=== PATIENT | female | born 1930 | race Two or more races ===

== ENCOUNTER 2016-11-04 17:09 | Inpatient (IN) | payer OTHER, MEDICARE ==
[~2016-11-04] VITALS: Ht 142.2 cm; Wt 38.5 kg
[~2016-11-04 17:09] MED LIST: ALENDRONATE; ASPIR 8181 MG PO
--- NOTE | 2016-11-04 17:39 | NUR ---
PT IS A 86 YEAR OLD FEMALE, PRESENTS TO ED WITH C/O RUQ ABDOMINAL PAIN X1 WEEK THAT HAS BEEN CONSTANT AND RADAITES AROUND TO BACK. PT DENIES ANY URINARY COMPLICATIONS. PT DENIES ANY N/V/D/C. PT BREATHING IS EVEN AND UNLABORED, NO S/S OF RESPRAITORY DISTRESS. SPEECH IS CLEAR AND APPROPRIATE. PT A/O X4. MSE PERFORMED BY .
[2016-11-04 17:57] LABS: CARBON DIOXIDE 27.8 mmol/L (21-32); CHLORIDE SERUM 95 mmol/L (98-107); CREATININE SERUM 0.8 mg/dL (0.6-1.0); GLUCOSE SERUM 83 mg/dL (74-106); POTASSIUM SERUM 4.5 mmol/L (3.5-5.1); SODIUM SERUM 128 mmol/L (136-145)
[2016-11-04 18:01] LABS: ALKALINE PHOSPHATASE 48 U/L (46-116); ALT/SGPT 14 U/L (14-59); AST/SGOT 19 U/L (15-37); BILIRUBIN TOTAL 0.3 mg/dL (0.20-1.00); TOTAL PROTEIN, SERUM 7.3 g/dL (6.4-8.2)
[2016-11-04 18:08] LABS: BASOPHIL % 0.3 % (0-2); PLATELET COUNT 149 x10^3mcL (130-400); RED CELL DISTRIBUTION WIDTH 13.6 % (11.5-14.5)
[2016-11-04 18:12] LABS: ALBUMIN 3.3 g/dL (3.4-5.0)
--- NOTE | 2016-11-04 19:07 | NUR ---
REPORT GIVEN TO HECTOR SABA, SHE WILL ASSYUME CARE PRIMARY RN.
--- NOTE | 2016-11-04 19:29 | NUR ---
PT IN BED AWAKE ALERT, RESP E/U. OBTAINED MRSA SWAB.
[2016-11-04] MEDS ORDERED: SIMVASTATIN20 M1 PO (19:31)
[2016-11-04] MEDS ORDERED: DSS100 MG PO (19:31)
[2016-11-04] MEDS ORDERED: TRAMADOL HCL50 MG PO (19:31)
[2016-11-04] MEDS ORDERED: CARVEDILOL3.125 M1 PO (19:31)
--- NOTE | 2016-11-04 19:54 | NUR ---
REPORT GIVEN TO LOVLEE TO ASSUME CARE
--- NOTE | 2016-11-04 20:04 | NUR ---
PT EN ROUTE TO TELE
--- NOTE | 2016-11-04 20:05 | NUR ---
RECEIVED PT FROM ER VIA [facility] ACCOMPANIED WITH NURSE, EMT AND PT'S GRANDDAUGHTER, PT SEEN, ALERT AND ORIENTED, DENIES HEADACHE OR DIZZINESS, GUJARATI SPEAKING ONLY, BREATHING EVEN AND UNLABORED, NO SOB, LUNG SOUNDS CLEAR, ON ROOM AIR WITH NO RESP DISTRESS NOTED, ON TELE#3 NSR, C/O OF CHEST PAIN EARLIER IN ED, PULSES PALPABLE, NO EDEMA NOTED, AMBULATORY WITH STEADY GAIT, ABD SOFT AND FLAT WITH ACTIVE BS, NO BM AT THIS TIME, C/O RT SIDE FLANK PAIN, DENIES ANY PROBLEM WITH VOIDING, POOR APPETITE, NO DISTRESS NOTED, WILL KEEP TO MONITOR.
[2016-11-04 20:34] VITALS: BP 107/68
[2016-11-04 20:50] LABS: MAGNESIUM 2.1 mg/dL (1.8-2.4); PHOSPHOROUS 4.7 mg/dL (2.5-4.9)
[2016-11-04 20:58] LABS: T3 TOTAL 0.81 ng/mL
[2016-11-04 21:00] LABS: FREE T4 1.06 ng/dL (0.76-1.46); FREE THYROXINE INDEX 3.3 ug/dL (1.4-4.5); T4(THYROXINE) 8.8 ug/dL (4.7-13.3)
--- NOTE | 2016-11-04 21:49 | NUR ---
PT STATES FEELING BETTER AFTER BEING GIVEN PRN NORCO 7.5 MG PO FOR C/O PAIN 8-9/10 TO RIGHT SIDE OF BACK RADIATING TO RIGHT CHEST. DENIES ANY SOB AT THIS TIME. NO S/S OF RESPIRATORY DISTRESS NOTED. 99% RA. LUNGS CLEAR BILATERALLY. IV NS INFUSING WELL TO LEFT AC. NO S/S OF INFECTION NOTED. GRANDDAUGHTER AT BEDSIDE. CALL LIGHT WITHIN REACH. WILL CONTINUE TO MONITOR. DR. RODRIGUEZ IN TO SEE PT AT THIS TIME.
--- NOTE | 2016-11-05 00:20 | NUR ---
PT ASSISTED TO BR, AMBULATORY WITH STEADY GAIT. ASSISTED BACK TO BED. BREATHING EQUAL AND UNLABORED. NO S/S OF RESPIRATORY DISTRESS NOTED ON ROOM AIR. IV PATENT AND INFUSING WELL. SCDS IN PLACE. SIDE RAILS UP. BED ALARM ON. NO S/S OF DISTRESS NOTED AT THIS TIME. CALL LIGHT WITHIN REACH. WILL CONTINUE TO MONITOR.
--- NOTE | 2016-11-05 03:15 | NUR ---
LAB RESULT FOR PTT 47.3; NO CHANGE AT THIS TIME. SECOND THERAPEUTIC PTT. IV HEPARIN INFUSING 700 ML/HR TO RIGHT AC. DR. NICOLAS NOTIFIED AND AWARE.
[2016-11-05 05:51] VITALS: BP 110/50
[2016-11-05 06:10] LABS: BASOPHIL % 0.3 % (0-2); RED CELL DISTRIBUTION WIDTH 13.3 % (11.5-14.5)
[2016-11-05 06:17] LABS: PLATELET COUNT 127 x10^3mcL (130-400)
--- NOTE | 2016-11-05 06:25 | NUR ---
PT SLEPT WELL THROUGHOUT THE NIGHT. BREATHING EQUAL AND UNLABORED ON ROOM AIR. NO S/S OF RESPIRATORY DISTRESS NOTED. IV PATENT AND INFUSING WELL. PT C/O 09/30 RIGHT FLANK PAIN. NOTED GRIMACING WITH MOVEMENT. PRN TRAMADOL 50 MG PO GIVEN. CALL LIGHT WITHIN REACH. WILL CONTINUE TO MONITOR.
[2016-11-05 06:30] LABS: CALCIUM 8.5 mg/dL (8.5-10.1); CHLORIDE SERUM 96 mmol/L (98-107); CREATININE SERUM 0.8 mg/dL (0.6-1.0); GLUCOSE SERUM 110 mg/dL (74-106); POTASSIUM SERUM 4.3 mmol/L (3.5-5.1); SODIUM SERUM 128 mmol/L (136-145)
--- NOTE | 2016-11-05 07:25 | NUR ---
RECEIVED THE PATIENT AWAKE AND ORIENTED TO PERSON, PLACE AND . PATIENT DENIED NAUSEA OR VOMITING AT THIS TIME. PATIENT STATED HAVING EPISODES OF ABD. AND BACK PAIN. THE PAIN WAS 4/10 AT THIS TIME AND TOLERABLE. CONTINUE TO MONITOR AND MEDICATE FOR PAIN PRN. IVF NS VIA H/L TO LAC. TELE # 3 READS SINUS RHYTHMS. CALL LIGHT WITHIN REACH. SIDE RAILS UP X3. BED WAS AT LOWEST POSITION AND ALARM WAS ON.
--- NOTE | 2016-11-05 08:40 | NUR ---
DR. LITTLE AND THE TEAM WERE MAKING ROUND TO SEE THE PATIENT. THE CARE PLAN WAS EXPLAINED TO THE PATIENT AND HER SON AT BEDSIDE. THE SON VERBALIZED UNDERSTANDING AND TRANSLATED THE INFORMATION TO THE [facility].
[2016-11-05 09:23] VITALS: BP 156/67
--- NOTE | 2016-11-05 10:00 | NUR ---
ECHO DECLINED JUST DONE AT [facility] EF 64% /GRANDSON.
[2016-11-05 10:09] LABS: UA SPECIFIC GRAVITY <=1.005 (1.005-1.035); microscopic required? YES; urine erythrocyte TRACE (NEGATIVE)
[2016-11-05 14:14] VITALS: BP 138/55
[2016-11-05 14:17] VITALS: BP 120/74
--- NOTE | 2016-11-05 17:11 | NUR ---
Initial Nutrition Assessment-Ashley Pérez 223T-A Dx: Chest pain PMHx: HTN,HLD andosteoporosis PSHx:None Labs: (11/05) Na:128L, B, H/H:9.7/29L, Troponin:0.062, WNL (11/04) Alb: 3.3L, HDL:71H, Amylase:124H, A1c:6.2, Meds: Colace, Humulin, NS IV, Theragran, Zofran Diet:Clear liquid PO Intake: (10/05) B:50%, L:100% Ht: 56in, 4'8" Wt:85#, 38.55kg BMI: 19.1kg/m2 (normal weight) IBW: 92#, %IBW:92 % UBW:85# per pt's granddaughter Age:86 y/o female Food Allergies:NKFA Skin:intact Simon:17 Edema:None GI: active bowel sounds. Last BM:11/04 Nursing Trigger:appears underweight/malnourished, poor PO intake>3days and unable to ingest for age. Pt admitted with chest pain and disorder of GI possibly cholecystitis. Pt is pending CT of abd and pelvis, per H&P. During visit observed pt laying in bed with granddaughter at bedside. Pt appears underweight but not malnourished. Per pt's granddaughtrer. Pt with elevated amylase and with possible pancreatitis. Pt with fair appetite and is tolerating clear liquid diet and will possibly be advanced. Problem with: N: Yes V: emesis x1 today D: No C:No Problems with: Chewing: pt with dentures but no shewing issues Swallowing:No Current appetite: Fair Recent wt change:no %wt change:0& Vitamin/Supplement use:No Special diet at home:Vegetarian (no eggs and no onions and garlic) Physical activity:No Education: Provided verbal diet education on low fat diet for possible pancreatitis. Pt's granddaughter familiar with diet due to being a RN. Estimated Nutritional Needs Based on actual body weight 39kg Energy: 975-1170kcal/d (25-30kcal/kg for geriatric maintenance) Protein: 39g/d (1g/kg for geriatric maintenance) Fluid: 975-1170ml/d (1 ml/kcal) or per doctor Nutrition Diagnosis 1. Altered nutrition labs related to possible pancreatitis as evidenced by elevated amylase level: 124H Intervention 1.Recommend advance diet as tolerated to low fat diet due to pt with possible pancreatitis. 2. Altered GI function related to possible pancreatitis as evidenced by pt with nausea and emesis x1 today. Monitor/Evaluate Goal:diet advancement, PO intake at least 75% of estimated needs Monitor: diet advancement, PO intake, Labs, GI function F/U in 3-5 days as moderate risk:11/08-
--- NOTE | 2016-11-05 17:12 | NUR ---
1.Recommend advance diet as tolerated to low fat diet due to pt with possible pancreatitis.
--- NOTE | 2016-11-05 18:53 | NUR ---
THE PATIENT C/O EPISODES OF NAUSEA AND VOMITTED 100 ML OF EMESIS. ZOFRAN 4MG IVP WAS MEDICATED TO THE PATIENT Q4HR X3 DURING THE SHIFT. THE PATIENT WAS RESTING IN BED AND STATED FEELING BETTER AND WAS ABLE TO HAVE 50 % OF CLEAR LIQUID FOR DINNER.
[2016-11-05 18:55] VITALS: BP 163/63
--- NOTE | 2016-11-05 19:20 | NUR ---
RECEIVED PT LAYING IN BED WITH GRAND DAUGHTER AT BEDSIDE. PT DENIES CHEST PAIN AT THIS TIME. PT IS A/O X4. SHE IS CALM AND PLEASANT. PT ON TELE MONITOR #3, NSR RATE OF 65. BILAT PERIPHERAL PULSES ARE PALPABLE. NO EDEMA NOTED. CAP REFILL <3 SECONDS. SCD ARE IN PLACE. PT IS BREATHING ON RA, LUNG SOUNDS CLEAR TO AUSCULTATION. PT DENIES SOB AT THIS TIME. PT DOES NOT APPEAR TO BE IN RESP DISTRESS. PT ABD IS SOFT AND FLAT WITH ACTIVE BOWEL SOUNDS. PT C/O MILD ABDOMINAL DISCOMFORT. DENIES NEED FOR PAIN MEDICATION. LAST BM WAS YESTERDAY. PT C/O MILD NAUSEA. NO VOMITING. PT DENIES NEED FOR NAUSEA MEDICATION THUS FAR. PT IS ABLE TO FREELY VOID URINE. PT HAS BRP AND IS AMBULATORY TO THE BATHROOM WITH ASSITANCE. SKIN IS DRY AND INTACT. NO ECCHYMOSIS OR REDNESS NOTED. IV FLUIDS INFUSING INTO THE LAC PER DOCTOR'S ORDERS. IV SITE IS DRY, PATENT, AND INTACT. NO SIGNS OF INFILTRATION. BED IN LOWEST POSITION. ROOM IS FREE AND CLEAR OF ALL SAFETY HAZARDS. CALL LIGHT WITHIN REACH. WILL CONTINUE TO MONITOR.
[2016-11-05 20:28] VITALS: BP 116/56
--- NOTE | 2016-11-05 21:00 | NUR ---
PT C/O ABDOMINAL PAIN AT NAUSEA. PAIN MED GIVEN AND ZOFRAN GIVEN. WILL CONTINUE TO MONITOR.
--- NOTE | 2016-11-06 00:26 | NUR ---
SPOKE WITH DR. NICOLAS. NOTIFIED HER ABOUT PT'S LOW SODIUM OF 128. NO NEW ORDERS GIVEN. WILL CONTINUE TO MONITOR
--- NOTE | 2016-11-06 00:50 | NUR ---
MADE ROUNDS. PT LAYING BED ASLEEP. DOES NOT APPEAR TO BE IN DISTRESS AT THIS TIME. CALL LIGHT WITHIN REACH. WILL CONTINUE TO MONITOR
--- NOTE | 2016-11-06 05:08 | NUR ---
PT WAS CALM AND PLEASANT DURING THE NIGHT. PT WAS ABLE TO GET A GOOD NIGHT'S REST. NO SIGNIFICANT OCCURENCES TO REPORT FROM THE NIGHT. PT COMPLIED WITH NURSING CARE THROUGH OUT THE SHIFT. PT DENIES CHEST PAIN. PT DENIES SOB AT THIS TIME. PT HAD NO VOMITING. IF FLUIDS REMAIN INFUSING INTO THE LAC PER DOCTOR'S ORDERS. IV SITE IS DRY, PATENT, AND INTACT. NO SIGN OF INFILTRATION. BED IN LOWEST POSITION. ROOM IS FREE AND CLEAR OF ANY SAFETY HAZARDS. CALL LIGHT WITHIN REACH. WILL ENDORSE CARE TO DAY NURSE.
[2016-11-06 05:49] VITALS: BP 134/58
[2016-11-06 06:16] LABS: BASOPHIL % 0.3 % (0-2); PLATELET COUNT 142 x10^3mcL (130-400); RED CELL DISTRIBUTION WIDTH 13.1 % (11.5-14.5)
[2016-11-06 06:32] LABS: AMYLASE 92 U/L (25-115); LIPASE 99 IU/L (73-393)
[2016-11-06 06:58] LABS: CALCIUM 8.5 mg/dL (8.5-10.1); CARBON DIOXIDE 25.2 mmol/L (21-32); CHLORIDE SERUM 101 mmol/L (98-107); CREATININE SERUM 0.7 mg/dL (0.6-1.0); GLUCOSE SERUM 89 mg/dL (74-106); MAGNESIUM 1.8 mg/dL (1.8-2.4); PHOSPHOROUS 4.3 mg/dL (2.5-4.9); POTASSIUM SERUM 4.2 mmol/L (3.5-5.1); SODIUM SERUM 133 mmol/L (136-145)
--- NOTE | 2016-11-06 07:25 | NUR ---
RECEIVED PT. IN BED AWAKE, ALERT. NO SOB, NO N/V NOTED. DENIES ANY PAIN AT THIS TIME. NS RUNNING AT 100 CC/HR. VIA IV H/L AT L AC. SCD TO BLE MAINTAINED. BED IN LOW POS., CALL LIGHT WITHIN REACH. SIDE RAILS UP X3.
[2016-11-06 09:54] VITALS: BP 123/63
[2016-11-06 11:21] VITALS: Ht 142.2 cm; Wt 38.5 kg
[2016-11-06 13:33] VITALS: BP 120/60
--- NOTE | 2016-11-06 15:00 | NUR ---
IV H/L RESTARTED AT R AC WITH GAUGE #22 DUE TO LEAKING OF CURRENT IV SITE (L AC).
--- NOTE | 2016-11-06 16:16 | NUR ---
REMAINS IN STABLE CONDITION AT THIS TIME. NO ACUTE DISTRESS NOTED.
[2016-11-06 17:52] VITALS: BP 158/67
--- NOTE | 2016-11-06 19:43 | NUR ---
RECEIVED PATIENT IN BED AWAKE,ALERT AND ORIENTED WITH NO SIGN OF DISTRESS NOTED. BREATHING EASY AND NON LABOR SATTING AT 98% RA. FAMILY MEMBERS AY BEDSIDE. TELE# 3,NSR ON MONITOR. SCD TO BLE IN PLACE. HAD BM TODAY SOFT IN LARGE AMOUNT PER PATIENT DAUGHTER. IV TO RAC INTACT AND INFUSING WELL. WILL CONTINUE TO MONITOR.
[2016-11-06 21:09] VITALS: BP 118/61
--- NOTE | 2016-11-07 00:56 | NUR ---
SLEEPING THIS TIME BREATHING EASY AND NONLABOR. WILL CONTINUE TO MONITOR.
--- NOTE | 2016-11-07 05:13 | NUR ---
SLEPT AT LONG INTERVALS DENIES PAIN AND DISOCMORT THE ENTIRE SHIFT. ALL NEEDS ATTENDED.
[2016-11-07 06:41] LABS: BASOPHIL % 0.3 % (0-2); PLATELET COUNT 144 x10^3mcL (130-400); RED CELL DISTRIBUTION WIDTH 13.4 % (11.5-14.5)
[2016-11-07 07:01] VITALS: BP 149/55
[2016-11-07 07:12] LABS: CALCIUM 7.8 mg/dL (8.5-10.1); CHLORIDE SERUM 104 mmol/L (98-107); CREATININE SERUM 0.6 mg/dL (0.6-1.0); GLUCOSE SERUM 88 mg/dL (74-106); MAGNESIUM 1.8 mg/dL (1.8-2.4); POTASSIUM SERUM 3.6 mmol/L (3.5-5.1); SODIUM SERUM 136 mmol/L (136-145)
--- NOTE | 2016-11-07 07:25 | NUR ---
RECEIVED THE PATIENT AWAKE AND ORIENTED TO PERSON, PLACE AND . PATIENT DENIED PAIN OR NAUSEA/VOMITING AT THIS TIME. IVF NS VIA H/L TO RAC. TELE # 3 READS SINUS RHYTHMS WITH DEPRESSED T WAVES. CALL LIGHT WITHIN REACH. SIDE RAILS UP X3. BED WAS AT LOWEST POSITION AND ALARM WAS ON.
--- NOTE | 2016-11-07 08:07 | NUR ---
DR. HUTSON AND THE TEAM WERE MAKING ROUND TO SEE THE PATIENT.
[2016-11-07 10:10] VITALS: BP 143/58
--- NOTE | 2016-11-07 12:54 | NUR ---
THE PATIENT DENIED ANY ABD PAIN OR NAUSEA/VOMITING AFTER HAVING FULL LIQUID DIET FOR LUNCH.
[2016-11-07 17:21] VITALS: BP 137/71
--- NOTE | 2016-11-07 19:07 | NUR ---
THE PATIENT WAS TOLERATED ABOUT 10% OF CCHO DIET FOR DINNER; HOWEVER, SHE DENIED ANY NAUSEA/VOMITING OR STOMACH PAIN AFTER HAVING THE DINNER. THE PATIENT TOOK A WALK IN THE HALLWAY WITH HER GRANDSON COUPLE OF TIMES DURING THE SHIFT WITH SLOW GAIT AND HOLDING IV POLE.
--- NOTE | 2016-11-07 19:29 | NUR ---
RECEIVED PATIENT IN BED AWAKE, ALERT AND ORIENTED WITH NO SIGN OF ACUTE DISTRESS. BREATHING EASY AND NONLABOR SATTING AT 97% RA. IV TO RAC INTACT AND INFUSING WELL. WILL CONTINUE TO MONITOR. CALL LIGHT WITHIN REACH. BED ALARM ON.
--- NOTE | 2016-11-08 00:09 | NUR ---
SLEEPING THIS TIME BREATHING EASY AND NONLABOR. WILL CONTINUE TO MONITOR.
--- NOTE | 2016-11-08 01:50 | NUR ---
AWAKE C/O BACKPAIN, MEDICATED WITH NORCO 1 TAB PO PRESCRIBED. WILL CONTINUE TO MONITOR.
[2016-11-08 04:58] VITALS: BP 122/54
--- NOTE | 2016-11-08 05:14 | NUR ---
SLEPT FAIRLY, C/O BACKPAIN X1 THE ENTIRE SHIFT AND MEDICATED PRESCRIBED. CHECKED AT INTERVALS FOR NEEDS AND SAFETY.
[2016-11-08 06:25] LABS: CALCIUM 7.8 mg/dL (8.5-10.1); CARBON DIOXIDE 27.5 mmol/L (21-32); CHLORIDE SERUM 103 mmol/L (98-107); CREATININE SERUM 0.6 mg/dL (0.6-1.0); GLUCOSE SERUM 88 mg/dL (74-106); PHOSPHOROUS 3.3 mg/dL (2.5-4.9); POTASSIUM SERUM 3.4 mmol/L (3.5-5.1); SODIUM SERUM 133 mmol/L (136-145)
[2016-11-08 06:30] LABS: BASOPHIL % 0.3 % (0-2); PLATELET COUNT 135 x10^3mcL (130-400); RED CELL DISTRIBUTION WIDTH 13.4 % (11.5-14.5)
--- NOTE | 2016-11-08 07:25 | NUR ---
RECEIVED PATIENT AWAKE/ALERT IN BED NO DSITRESS NOTED; DENIES PAIN. ASSIST PATIENT TO BATHROOM AND BACK TO BED. C/O NAUSEA. WILL MEDICATE FOR NAUSEA. CALL LIGHT WITHIN REACH.
[2016-11-08 08:47] VITALS: BP 158/60
--- NOTE | 2016-11-08 09:16 | NUR ---
[place] IV PATIENT OFF FLOOR VIA WHEEL CHAIR FOR CT.
--- NOTE | 2016-11-08 09:45 | NUR ---
PATIENT IN BED TECH PERFORM RENAL US AT THIS TIME, NO COMPLAINT. RENAL US COMPLETED. REPOSITION UP IN BED; ALL DUE MEDS GIVEN. NEEDS ATTENDED. CALL LIGHT WITHIN REACH.
--- NOTE | 2016-11-08 12:27 | NUR ---
DR. MIKE AMEZQUITA FOR PATIENT'S DTR REQUEST; REPOSITION PATIENT UP IN BED FOR LUNCH. DUE MEDS GIVEN. DTR ASSIST PATIENT WITH HER MEAL. BS 81 NO COVERAGE NEEDED. NEEDS ANTICIPATED.
[2016-11-08 13:48] VITALS: BP 141/41
--- NOTE | 2016-11-08 15:53 | NUR ---
PATIENT UP WALKING PT IN [place] NO COMPLAINT.
--- NOTE | 2016-11-08 16:56 | NUR ---
PATIENT RESTING IN BED REPOSITION UP IN BED, NO COMPLAINT. DUE MEDS GIVEN. BS 73 NO COVERAGE NEEDED; JUICE GIVEN. CONT TO MONITOR.
--- NOTE | 2016-11-08 17:39 | NUR ---
REPOSITION PATIENT UP FOR DINNER PATIENT REFUSED TO EAT DON'T LIKE THE FOODS. JELLO AND JUICE GIVEN. CONT TO MONITOR.
[2016-11-08 18:43] VITALS: BP 141/88
--- NOTE | 2016-11-08 19:10 | NUR ---
PATIENT RECEIVED AWAKE, ALERT, AND ORIENTED X 4. FAMILY AT BEDSIDE. NO DISTRESS NOTED. PATIENT DENIES CHEST PAIN AT THIS TIME. PATIENT C/O 5/10 BACK PAIN, WILL MEDICATE PER DOCTOR'S PRN ORDER. IV SITE TO LEFT FOREARM, PATENT AND INTACT. IV FLUID INFUSING PER DOCTOR'S ORDER. BED IN LOWEST POSITION. CALL LIGHT WITHIN REACH. WILL CONTINUE TO MONITOR.
[2016-11-08 21:16] VITALS: BP 160/61
--- NOTE | 2016-11-09 05:17 | NUR ---
PATIENT RESTED THROUGHOUT THE NIGHT. NO DISTRESS NOTED. NO C/O CHEST PAIN. SAFETY AND COMFORT MEASURES MAINTAINED. BED IN LOWEST POSITION. CALL LIGHT WITHIN REACH. WILL CONTINUE TO MONITOR AND ENDORSE TO NEXT SHIFT NURSE.
[2016-11-09 05:58] VITALS: BP 124/50
[2016-11-09 06:07] LABS: BASOPHIL % 0.4 % (0-2); PLATELET COUNT 157 x10^3mcL (130-400); RED CELL DISTRIBUTION WIDTH 13.2 % (11.5-14.5)
[2016-11-09 06:12] LABS: CALCIUM 8.4 mg/dL (8.5-10.1); CARBON DIOXIDE 26.8 mmol/L (21-32); CHLORIDE SERUM 103 mmol/L (98-107); CREATININE SERUM 0.7 mg/dL (0.6-1.0); GLUCOSE SERUM 79 mg/dL (74-106); MAGNESIUM 2.3 mg/dL (1.8-2.4); PHOSPHOROUS 3.4 mg/dL (2.5-4.9); POTASSIUM SERUM 4.8 mmol/L (3.5-5.1); SODIUM SERUM 134 mmol/L (136-145)
[2016-11-09 07:50] VITALS: BP 150/59
--- NOTE | 2016-11-09 07:55 | NUR ---
A/O X4. CLEAR SPEECH. SPEAKS SOME STATELESS. RADIAL AND PEDAL PULSES PALPABLE. NO EDEMA OR SWELLING NOTED. <3 SECS CAP REFILL. SCDS IN PLACED. ON RA SAT 96%. BREATHING EVEN AND UNLBARED. NO NVD. VOIDING ADEQUATELY. HAS MILD GENERALIZED WEAKNESS. AMBULATORY WITH SLOW AND STEADY GAIT. NO SKIN TEAR OR OPEN WOUND. DENIES PAIN AT THIS TIME. NS IV INFUSING WELL AT 100 ML/HR. WILL CONTINUE TO MONITOR. CALL TOÑO PARDO.
--- NOTE | 2016-11-09 08:22 | NUR ---
Pt RESTING COMFORTABLY. WILL CONTINUE TO MONITOR.
--- NOTE | 2016-11-09 10:05 | NUR ---
SPOKE TO GRANDSON REGARDING PLAN FOR TODAY.
--- NOTE | 2016-11-09 11:35 | NUR ---
PER DR MCKEON GIVE X1 PAIN MEDICINE NOW.
--- NOTE | 2016-11-09 12:10 | NUR ---
Pt RESTING COMFORTABLY. NO DISTRESS NOTED. WILL CONTINUE TO MONITOR.
[2016-11-09 12:46] VITALS: BP 129/56
--- NOTE | 2016-11-09 13:10 | NUR ---
RESTING COMFORTABLY. NO DISTRESS NOTED.
[2016-11-09] MEDS ORDERED: OSCD PO (14:10)
[2016-11-09] MEDS ORDERED: PRI20 PO (14:11)
[2016-11-09 14:12] VITALS: BP 129/56
[2016-11-09] MEDS ORDERED: D-10001 TAB PO (14:12)
[2016-11-09] MEDS ORDERED: ROBAXIN500 MG PO (14:13)
[2016-11-09] MEDS ORDERED: NORCO1 TA2 PO (14:14)
--- NOTE | 2016-11-09 14:45 | NUR ---
DR MCKEON AT BEDSIDE.
--- NOTE | 2016-11-09 15:07 | NUR ---
DC INSTRUCTION AND SCRIPT GIVEN TO GRANDDAUGHTER. VERBALIZED UNDERSTANDING. IV CONSTANTIN INTACT AND DC'D. NO TELEBOX. WILL ESCORT Pt DOWN THE HALLWAY.
--- NOTE | 2016-11-09 15:35 | NUR ---
PHYSICAL THERAPY DAILY NOTES CO-SIGN All documentation done by the [employer] for 11/09/16 has been reviewed. I agree with the documentation. Reviewed/Co-Signed by: Angelica Guzman DPT Documentation Done by: Mikki Garcia PTA PATIENT CORNELIO TX WELL, PROGRESSING TOWARDS GOALS. PATIENT ABLE TO DEMO INCREASED GAIT CORNELIO, ABLE TO CORNELIO CONT STAIR TRNG. CONT WITH PT POC CORNELIO/SAFE.
== END 2016-11-09 15:16 | disposition home or self-care (01) | DRG 243 ==
LOC: ED 17:09 → DU 19:25 → MU 19:25 → DU 20:05 → MU 11-07 08:53
PROVIDERS: Emergency Medicine; Family Medicine; ADMIT Family Medicine
DX: K21.9 Gastro-esophageal reflux disease without esophagitis (principal); E43 Unspecified severe protein-calorie malnutrition; I50.43 Acute on chronic combined systolic (congestive) and diastolic (congestive) heart failure; J90 Pleural effusion, not elsewhere classified; E87.1 Hypo-osmolality and hyponatremia; E78.1 Pure hyperglyceridemia; Z66 Do not resuscitate; E78.5 Hyperlipidemia, unspecified; Z68.1 Body mass index [BMI] 19.9 or less, adult; E78.00 Pure hypercholesterolemia, unspecified; G89.29 Other chronic pain; M54.9 Dorsalgia, unspecified; M81.0 Age-related osteoporosis without current pathological fracture; D64.9 Anemia, unspecified; R31.9 Hematuria, unspecified; R73.03 Prediabetes; I11.0 Hypertensive heart disease with heart failure; M85.88 Other specified disorders of bone density and structure, other site; Z82.49 Family history of ischemic heart disease and other diseases of the circulatory system
CPT/HCPCS: 82962; 83880; 84439; 85378; 97110-GP; 97116-GP; 97530-GP; J1940; J2405; J7030; Q0092

== ENCOUNTER 2017-05-24 17:33 | Emergency (ER) | payer MEDICARE, OTHER ==
[~2017-05-24] VITALS: Ht 149.9 cm; Wt 38.1 kg
[~2017-05-24 17:33] MED LIST changes: +CARVEDILOL3.125 M1 PO; +D-10001 TAB PO; +DSS100 MG PO; +NORCO1 TA2 PO; +OSCD PO; +PRI20 PO; +ROBAXIN500 MG PO; +SIMVASTATIN20 M1 PO; +TRAMADOL HCL50 MG PO
[2017-05-24 17:48] VITALS: Ht 149.9 cm; Wt 38.1 kg
[2017-05-25 00:10] VITALS: BP 134/67
== END 2017-05-25 00:10 | disposition home or self-care (01) ==
LOC: ED 17:33
DX: S06.0X0A Concussion without loss of consciousness, initial encounter (principal); S13.4XXA Sprain of ligaments of cervical spine, initial encounter; S32.029D Unspecified fracture of second lumbar vertebra, subsequent encounter for fracture with routine healing; I10 Essential (primary) hypertension; E78.00 Pure hypercholesterolemia, unspecified; W18.30XA Fall on same level, unspecified, initial encounter; Y99.8 Other external cause status; Y93.89 Activity, other specified; Y92.89 Other specified places as the place of occurrence of the external cause
CPT/HCPCS: J8597

== ENCOUNTER 2019-03-24 22:26 | Inpatient (IN) | payer OTHER, MEDICARE ==
[~2019-03-24] VITALS: Ht 152.4 cm; Wt 41.3 kg
[2019-03-24 22:30] VITALS: Ht 152.4 cm; Wt 41.3 kg
[2019-03-24 23:42] LABS: BASOPHIL % 0.2 % (0-2); PLATELET COUNT 108 x10^3mcL (130-400); RED CELL DISTRIBUTION WIDTH 13.5 % (11.5-14.5)
[2019-03-24 23:44] LABS: CALCIUM 7.8 mg/dL (8.5-10.1); CARBON DIOXIDE 24.8 mmol/L (21-32); CHLORIDE SERUM 101 mmol/L (98-107); CREATININE SERUM 0.9 mg/dL (0.6-1.0); GLUCOSE SERUM 86 mg/dL (74-106); POTASSIUM SERUM 4.1 mmol/L (3.5-5.1); SODIUM SERUM 133 mmol/L (136-145)
[2019-03-24 23:54] LABS: ALBUMIN 2.8 g/dL (3.4-5.0); ALKALINE PHOSPHATASE 46 U/L (46-116); ALT/SGPT 15 U/L (14-59); AST/SGOT 20 U/L (15-37); BILIRUBIN TOTAL 0.2 mg/dL (0.20-1.00); TOTAL PROTEIN, SERUM 6.2 g/dL (6.4-8.2)
[2019-03-25] VITALS (7 sets, daily range): BP systolic 129–168; BP diastolic 46–64
[2019-03-25 01:54] LABS: FREE T4 1.04 ng/dL (0.76-1.46); FREE THYROXINE INDEX 2.6 ug/dL (1.4-4.5); T4(THYROXINE) 7.3 ug/dL (4.7-13.3)
[2019-03-25 02:01] LABS: CHOLESTEROL/HDL RATIO 1.7
[2019-03-25 02:32] LABS: T3 TOTAL 0.9 ng/mL
[2019-03-25 06:27] LABS: BASOPHIL % 0.3 % (0-2); RED CELL DISTRIBUTION WIDTH 13.7 % (11.5-14.5)
[2019-03-25 06:42] LABS: PLATELET COUNT 103 x10^3mcL (130-400)
[2019-03-25 06:48] LABS: CALCIUM 8.3 mg/dL (8.5-10.1); CARBON DIOXIDE 24.8 mmol/L (21-32); CHLORIDE SERUM 105 mmol/L (98-107); CREATININE SERUM 0.7 mg/dL (0.6-1.0); GLUCOSE SERUM 77 mg/dL (74-106); MAGNESIUM 2.3 mg/dL (1.8-2.4); POTASSIUM SERUM 3.9 mmol/L (3.5-5.1); SODIUM SERUM 137 mmol/L (136-145)
[2019-03-25 09:14] LABS: microscopic required? NO
[2019-03-25 09:22] LABS: UA SPECIFIC GRAVITY <=1.005 (1.005-1.035); urine erythrocyte NEGATIVE (NEGATIVE)
[2019-03-25 09:51] LABS: AMPHETAMINE QUAL UR NONE DETECTED (See below)
[2019-03-26 05:42] VITALS: BP 128/52
[2019-03-26 07:34] LABS: CALCIUM 8.3 mg/dL (8.5-10.1); CARBON DIOXIDE 25.4 mmol/L (21-32); CHLORIDE SERUM 102 mmol/L (98-107); CREATININE SERUM 0.8 mg/dL (0.6-1.0); GLUCOSE SERUM 76 mg/dL (74-106); PHOSPHOROUS 4.2 mg/dL (2.5-4.9); POTASSIUM SERUM 3.8 mmol/L (3.5-5.1); SODIUM SERUM 137 mmol/L (136-145)
[2019-03-26 08:37] LABS: RED CELL DISTRIBUTION WIDTH 13.7 % (11.5-14.5)
[2019-03-26 08:38] LABS: PLATELET COUNT 114 x10^3mcL (130-400)
[2019-03-26 09:06] VITALS: BP 139/56
[2019-03-26 13:05] LABS: BAND NEUTROPHIL 0 % (0-10); MONOCYTE 43 % (0-7); SEGMENTED NEUTROPHILS 24 % (37-75)
[2019-03-26 13:06] LABS: PLATELET MORPHOLOGY PLATELETS DECREASED; rbc morphology (normal/abnorm) ABNORMAL (NORMAL)
[2019-03-26 13:42] VITALS: BP 149/59
[2019-03-26 17:03] VITALS: BP 135/58
[2019-03-26 20:05] VITALS: BP 141/57
[2019-03-27 06:33] LABS: BASOPHIL % 0.1 % (0-2); RED CELL DISTRIBUTION WIDTH 13.8 % (11.5-14.5)
[2019-03-27 06:40] LABS: CALCIUM 8.7 mg/dL (8.5-10.1); CARBON DIOXIDE 24.2 mmol/L (21-32); CHLORIDE SERUM 99 mmol/L (98-107); CREATININE SERUM 0.9 mg/dL (0.6-1.0); GLUCOSE SERUM 146 mg/dL (74-106); POTASSIUM SERUM 4.1 mmol/L (3.5-5.1); SODIUM SERUM 133 mmol/L (136-145)
[2019-03-27 07:09] LABS: PLATELET COUNT 120 x10^3mcL (130-400)
[2019-03-27 08:02] VITALS: BP 141/57
[2019-03-27 13:00] VITALS: BP 139/62
[2019-03-27 16:33] VITALS: BP 144/63
[2019-03-27 20:42] VITALS: BP 134/55
[2019-03-28 06:19] VITALS: BP 132/54
[2019-03-28 06:29] LABS: BASOPHIL % 0.2 % (0-2); PLATELET COUNT 131 x10^3mcL (130-400); RED CELL DISTRIBUTION WIDTH 13.4 % (11.5-14.5)
[2019-03-28 06:49] LABS: CALCIUM 7.5 mg/dL (8.5-10.1); CHLORIDE SERUM 103 mmol/L (98-107); CREATININE SERUM 0.9 mg/dL (0.6-1.0); GLUCOSE SERUM 134 mg/dL (74-106); POTASSIUM SERUM 3.7 mmol/L (3.5-5.1); SODIUM SERUM 137 mmol/L (136-145)
[2019-03-28] MEDS ORDERED: ZES5 PO (08:26)
[2019-03-28] MEDS ORDERED: MOT400 PO (08:28)
[2019-03-28] MEDS ORDERED: COL0.6 PO (08:29)
[2019-03-28] MEDS ORDERED: PRI20 PO (08:29)
[2019-03-28] MEDS ORDERED: PREDNISONE10 MG PO (08:33)
[2019-03-28] MEDS ORDERED: PRE20 PO (08:33)
[2019-03-28] MEDS ORDERED: PREDNISONE5 MG PO (08:34)
[2019-03-28] MEDS ORDERED: LEVOFLOXACIN500 M1 PO (08:39)
[2019-03-28 08:45] VITALS: BP 138/57
[2019-03-28 10:17] VITALS: BP 138/57
== END 2019-03-28 11:36 | disposition home health service (06) | DRG 190 ==
LOC: ED 22:26 → MU 03-25 00:46 → DU 03-25 00:46 → MU 03-26 16:48
PROVIDERS: Emergency Medicine; Internal Medicine; ADMIT Family Medicine
DX: I21.A1 Myocardial infarction type 2 (principal); E43 Unspecified severe protein-calorie malnutrition; D61.818 Other pancytopenia; E87.1 Hypo-osmolality and hyponatremia; J06.9 Acute upper respiratory infection, unspecified; I10 Essential (primary) hypertension; E78.00 Pure hypercholesterolemia, unspecified; G89.29 Other chronic pain; E78.5 Hyperlipidemia, unspecified; M81.0 Age-related osteoporosis without current pathological fracture; Z68.1 Body mass index [BMI] 19.9 or less, adult; Z82.49 Family history of ischemic heart disease and other diseases of the circulatory system; Z79.82 Long term (current) use of aspirin
CPT/HCPCS: 83880; 84439; 87804; 97110-GP; 97116-GP; 97530-GP; G0378; J1644; J1940; J2543; J2920; J7030; J7050; J7620; J7626; Q0092